=== PATIENT | female | born 1960 | race Caucasian/White ===

== ENCOUNTER 2018-04-18 08:31 | Day surgery (SDC) | payer BC ==
--- NOTE | 2018-04-15 21:11 | EKG ---
Test Date: 2018-04-15 Test Time: 15:14:14 Wire Drawing Setter: STEFANY MEASUREMENT RESULTS: Intervals: Rate: 67 WA: 140 QRSD: 84 QT: 430 QTc: 454 [place]: P: -3 WA: 140 QRS: 4 T: -28 INTERPRETIVE STATEMENTS: Normal sinus rhythm ST & T wave abnormality, consider anterior ischemia Abnormal ECG Compared to ECG 09/28/2015 11:34:06 Possible ischemia now present Sinus tachycardia no longer present ST (T wave) deviation still present Electronically Signed On 04-15-18 21:10:39 CDT by Simon Ho
[2018-04-18] MEDS ORDERED: Ringers Lactate 1,000 ML IV ONE ×2 (08:46→12:18)
[2018-04-18] MEDS ORDERED: METHYLPREDNISOLONE 125 MG INJ ONE (08:49)
[2018-04-18] MEDS: OXYMETAZOLINE HCL 0.05% 30ML NAS ONE ×5 (08:55→11:25)
[2018-04-18] MEDS ORDERED: NA CHLORIDE 0.9% 500 ML ONE (09:34)
[2018-04-18] MEDS ORDERED: OXYMETAZOLINE HCL 0.05% 30ML NAS ONE (09:34)
[2018-04-18] MEDS ORDERED: MIDAZOLAM HCL 2 MG/2 ML INJ ONE ×2 (09:35→09:50)
[2018-04-18] MEDS ORDERED: PROPOFOL 200 MG/20 ML VIAL IV ONE (09:49)
[2018-04-18] MEDS ORDERED: ROCURONIUM 50 MG/5 ML VIAL IV ONE ×3 (09:49→11:28)
[2018-04-18] MEDS ORDERED: FENTANYL CITR 250 MCG/5 ML ONE (09:50)
[2018-04-18] MEDS ORDERED: ONDANSETRON HCL 40 MG/20 ML VIAL ONE (09:53)
[2018-04-18] MEDS ORDERED: LIDOCAINE 1% MPF 2 ML AMPULE ONE (09:53)
[2018-04-18] MEDS ORDERED: GLYCOPYRROLATE 0.2 MG/ML SYR ONE ×2 (09:53→12:34)
[2018-04-18] MEDS ORDERED: NEOSTIGMINE 1 MG/ML -5 ML SYRINGE ONE ×2 (09:53→10:48)
[2018-04-18] MEDS: LIDOCAINE 1% W/EPI 1:100,000 MDV 50 ML VIAL ONE ×2 (10:00→10:31)
[2018-04-18] MEDS ORDERED: EPHEDRINE SULF 50 MG/10 ML SYR ONE (10:59)
[2018-04-18] MEDS ORDERED: NS 0.9% VIAL 20 ML ONE (12:23)
[2018-04-18] MEDS ORDERED: Phenylephrine HCl 10 MG/ML 1 ML VIAL ONE (12:23)
--- NOTE | 2018-04-18 12:36 | P.BOP ---
Preoperative diagnosis: nasal and presybeterian lesion; CRS Postoperative diagnosis: nasal BCC, presybeterian lesion, CRS Primary procedure: left ethmoidectomy Secondary procedure: nasal BCC exicsion and local tissue rearrangements/bilobed flap Other procedure(s): right sphenoid balloon sinuplasty, biopsy left temps Collections Assistant: NONE,NONE Estimated blood loss: 100ml Specimen: nasal, presybeterian, sinus Findings: nasal BCC with negative margins on frozen section Anesthesia: General Complications: None Implants: L xerogel Fluids & blood products: 1100 ml crystalloid Transferred to: Recovery Room Condition: Good
[2018-04-18] MEDS: MEPERIDINE HCL 50 MG/ML AMP ONE ×2 (13:05→13:10)
[2018-04-18] MEDS ORDERED: KETOROLAC 30 MG/ML INJ ONE (13:42)
[2018-04-18 14:13] VITALS: O2SAT 95
[2018-04-18] MEDS ORDERED: CODEINE 30MG/APAP 300MG TAB ONE (14:37)
[2018-04-18 15:29] VITALS: BP 119/67; TEMP 98.5
--- NOTE | 2018-04-22 17:45 | OP ---
Date of Procedure: 04/18/2018 Surgeon: Lauren Somers MD Preoperative Diagnosis: Nasal and temporal lesions and chronic rhinosinusitis. 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 Procedure: Nasal endoscopy with left ethmoidectomy, right sphenoid balloon sinuplasty, biopsy of the left temporal and excision of nasal basal cell carcinoma with local tissue rearrangements via bilobe d flap. Indication For Procedure: Ms. Sethi was referred to the ENT Clinic for chronic sinusitis and has underlying autoimmune disease including lupus resulting in a septal perforation. She was noted on p ost treatment scan to have mild persistent ethmoid disease with partial opacification of the right sp henoid sinus and due to need for long-term immunosuppression due to her lupus, it was felt these woul d contribute over time to relapses, recurrences and potential interruption of her lupus therapy. The risks, benefits, and alternatives were discussed with the patient, who agreed to proceed. During th e patient's evaluation, she was noted to have a concerning and suspicious lesion of the right nasal a la, but no prior biopsy had been performed. The patient was also concerned about a lesion of the lef t temporal, which clinically appeared benign but was reported by the patient to be increasing over ti me and she desired biopsy to ensure no concerning lesions. Description Of Procedure: The patient was brought to the operating room. She was placed under gener al anesthesia via oral endotracheal tube. The patient's face was prepped and draped in standard [facility] ion for skin excisions. The nasal lesion was approximately 6 mm in diameter and its appearance was s uspicious for basal cell carcinoma. The area was injected with local anesthetic and a circular incis ion around the margin around the lesion with a 2 to 3 mm margin was designed. A scalpel was used to incise through the skin and subcutaneous tissues. A suture was placed at the superior most aspect ma rking 12 o'clock and the specimen was elevated sharply from the underlying tissues. The specimen was sent to Pathology for frozen section analysis. While awaiting these results, the left temporal lesi on was addressed. The area around the lesion was injected with local anesthetic. The lesion was not ulcerated and was firm, but not hard and there was no crusting. Therefore, the lesion was removed b y excision with a fusiform design. The specimen was not oriented and the defect was closed in a laye red fashion using 4-0 Vicryl and 5-0 gut sutures. Direct pressure was applied along with electrocaut jeison to aid in hemostasis. The area around the nose was then redressed and initial plans for reconstr uction of the defect were undertaken. The surrounding tissues were carefully undermined. The defect was approximately 1 cm in diameter and tentative plan for bilobed flap were made. Once the patholog y results returned confirming a basal cell carcinoma with negative margins. The flap was cut, rotate d into place and secured using Vicryl sutures. The skin was then closed in the running fashion using gut sutures. These portions of the procedure were concluded and attention was turned to the patient 's nasal cavity and paranasal sinuses. The head of bed was turned 90 degrees. The patient's preoper ative CT was loaded into the [employer] system. The navigation headpiece was secured to the patient's forehead and registration was performed in accordance with supervisor network control operators's instructions. The accuracy of the registration was confirmed by celep-ub-nwcye matching including the tip of the nose, base of the columella, glabella and the bilateral medial lateral canthus. I and registration accuracy was fe lt to be very good. The nasal hairs were trimmed and the nose was packed with Afrin-soaked pledgets. After time for effect, these were removed and a 0-degree endoscope was used to perform a nasal endo scopy. There was a large pre-existing septal perforation consistent with preoperative CT and physica l exam. The edges of the perforation were friable, but there was no obvious mass. No significant cr usting and no severe single source of bleeding. The 0-degree endoscope was used with the navigation suction to navigate into the middle meatus. The left uncinate process was removed using backbiter an d 90-degree Blakesley revealing the ethmoid bulla. Ethmoid partitions were carefully dissected and r emoved using combination of curette, Blakesley and microdebrider. The nasal mucosa was very friable and bled easily. Afrin-soaked pledgets were applied intermittently to aid in control of bleeding. T he suction navigation was used to confirm. Dissection through the basal lamella into the posterior e thmoid cells were there was persistent opacification on her preoperative CT scan. In addition, cells within the frontal recess were carefully dissected to confirm removal of the opacified and irritated area noted on her preoperative CT scan. After adequate dissection in the left ethmoid cavity was pa cked with Afrin-soaked pledgets and attention was turned to the right side and initial preoperative p nhung for right ethmoidectomy was reconsidered, given the degree of oozing and bleeding and a very mild findings on the right side. Decision was made to proceed with balloon sinuplasty and irrigation of the right sphenoid sinus. The entellus balloon device was prepared in accordance with supervisor network control operators's instructions and was used under endoscopic guidance and advanced into the sphenoid os. The balloon was dilated. Then deflated and retracted. The right sphenoid was then forcefully irrigated with sev eral 20 mL aliquots of sterile saline. The nasal cavity was thoroughly suctioned. The area of the s phenoid ethmoid recess was examined and there was no significant bleeding. Attention was then return ed to the left ethmoid cavity. All packing was removed and the ethmoid cavity was repacked with a Ze ro gel dissolvable sinus dressing. The packing was soaked thoroughly with sterile saline. The nasop harynx was thoroughly suctioned and the patient was returned to care of anesthesia for awakening, ext ubation in the operating room, which proceeded without difficulty. Complications: None. Bisposition: The patient will follow up with Dr. Somers in approximately 10 days for initial postsu rgical debridement and removal of sutures as needed. ZAYRA/TANIA Voice ID: [id number] Report ID: [id number]
== END 2018-04-18 15:05 | disposition home or self-care (01) ==
LOC: OR 08:31
PROVIDERS: ATTEND Otolaryngology
PROC: 8E09XBZ Computer Assisted Procedure of Head and Neck Region (ICD-10-PCS; 2018-04-18)
PROC: 0HB1XZZ Excision of Face Skin, External Approach (ICD-10-PCS; 2018-04-18)
PROC: 0HB1XZZ Excision of Face Skin, External Approach (ICD-10-PCS; 2018-04-18)
PROC: 09TV8ZZ Resection of Left Ethmoid Sinus, Via Natural or Artificial Opening Endoscopic (ICD-10-PCS; principal; 2018-04-18 10:15)
PROC: 09QW8ZZ Repair Right Sphenoid Sinus, Via Natural or Artificial Opening Endoscopic (ICD-10-PCS; 2018-04-18 10:15)
DX: C44.311 Basal cell carcinoma of skin of nose (principal); D23.39 Other benign neoplasm of skin of other parts of face; J32.9 Chronic sinusitis, unspecified; J37.0 Chronic laryngitis; J34.89 Other specified disorders of nose and nasal sinuses; K21.9 Gastro-esophageal reflux disease without esophagitis; I10 Essential (primary) hypertension; E03.9 Hypothyroidism, unspecified; M06.9 Rheumatoid arthritis, unspecified; M32.9 Systemic lupus erythematosus, unspecified; F32.9 Major depressive disorder, single episode, unspecified; Z98.84 Bariatric surgery status
CPT/HCPCS: 88304; 88305; 88311; 88331; 88332; 93005; J2001; J2175; J2250; J2370; J2405; J2710; J2930

== ENCOUNTER 2019-03-06 16:20 | Emergency (ER) | payer BC ==
--- NOTE | 2019-03-06 17:19 | RAD REPORT ---
EXAM DESCRIPTION: CT - Head C Spine Cap Wo Con - 03/06/2019 5:00 pm CLINICAL HISTORY: Fall, head, neck, chest and abdomen pain COMPARISON: CT chest September 2018, contrast CT abdomen study September 2015. TECHNIQUE: Axial [address] head images were obtained. Axial [address] cervical spine images were obtain ed with sagittal and coronal reconstruction images reviewed. Axial 5 mm images of the chest, abdomen and pelvis were obtained. All CT scans are performed using dose optimization technique as appropriate and may include automated exposure control or mA/KV adjustment according to patient size. FINDINGS: No intracranial hemorrhage, mass or edema. No midline shift or abnormal fluid collection. Mastoid air cells and paranasal sinuses are clear. No skull fracture. No globe or orbital content ab normality. Arterial calcifications are present. There is a questionable nasal bone fracture. Facial b ones are only partially imaged. Correlation is needed with any evidence for significant facial trauma . Minimal atrophy and chronic ischemic changes appear to be present. Cervical bodies are normal in height and alignment. No fracture or acute bone finding.No disk space n arrowing.No prevertebral soft tissue thickening or paraspinal mass.Central canal detail is inherently limited on CT imaging. CT chest shows no pneumothorax, pulmonary contusion or pleural fluid collection. Punctate granuloma s een in the left midlung field. Coronary artery calcifications are present. No mediastinal hematoma an d the aorta and pulmonary arteries are unremarkable. No chest will mass or abnormal axillary finding. No displaced rib fracture or other significant bony finding. No acute traumatic injury seen to the abdomen or pelvis. The liver shows several large areas of geogr aphic decreased attenuation. No evidence for capsular disruption, fluid or stranding adjacent to the liver. Spleen is unremarkable. No pancreatic abnormality. Cholecystectomy clips are present. No bilia ry tree dilatation. Kidneys and adrenal glands show no suspicious findings for noncontrast imaging. No bowel injury or si gnificant finding. No free air, free fluid or abnormal stranding. No hernia, mass or bulky lymphadeno dar. No urinary bladder abnormality. Uterus is absent. Ovaries are absent or atrophic. No significant bony finding. IMPRESSION: No hemorrhage, edema or acute intracranial finding. No CT head abnormality to explain as ymmetric pupils. No significant CT cervical spine finding. No significant CT Chest finding. No acute CT abdomen or pelvis finding. Patient shows large geographic areas diminished attenuation in the liver not fully assessed on a noncontrast study. These were probably present on the September CT s tudy which was also inadequate for full liver assessment. Patient has a history of fatty infiltration and the current presentation is most likely areas of resi dual fatty infiltration. Malignancy or other aggressive liver process is felt to be unlikely. Follow-up outpatient MR imaging would be most sensitive for further evaluation of the liver parenchym a. Contrast-enhanced CT abdomen using precontrast, contrast enhanced and delayed imaging would be an alternative if the patient is unable to undergo MR imaging.
--- NOTE | 2019-03-06 17:23 | ER ---
Nurse's Notes [facility] Name: Tania Sethi Age: 58 yrs Sex: Female : 1960 Arrival Date: 03/06/2019 Time: 16:23 Bed 5 Private MD: Edy Garcia V Diagnosis: Fall on same level from slipping, tripping and stumbling;Superficial injury of head Presentation: 03/06 16:30 Presenting complaint: Sent from [facility] for uneven pupils. Pt reports fall on wet hb concrete 2 days ago, hit head, negative LOC. Pt c/o right ankle pain and headache. Denies N/V/dizziness. Transition of care: patient was not received from another setting of care. Onset of symptoms was March 04, 2019. Risk Assessment: Do you want to hurt yourself or someone else? Patient reports no desire to harm self or others. Care prior to arrival: None. 16:30 Method Of Arrival: Ambulatory hb 16:30 Acuity: [place] 3 hb Historical: - Allergies: 16:34 Sulfa (Sulfonamide Antibiotics); hb 16:34 Glipizide; hb - PSHx: 16:34 Gastric Bypass; Hysterectomy; Hernia repair; hb - Immunization history:: Adult Immunizations up to date. - Social history:: Smoking status: Patient/guardian denies using tobacco. - Ebola Screening: : No symptoms or risks identified at this time. Vital Signs: 16:29 BP 137 / 95; Pulse 80; Resp 16; Temp 97.9; Pulse Ox 96% ; Weight 80.74 kg; Height 5 ft. hb 3 in. (160.02 cm); Pain 10/10; 16:29 Body Mass Index 31.53 (80.74 kg, 160.02 cm) hb Emmy Coma Score: 16:43 Eye Response: spontaneous(4). Verbal Response: oriented(5). Motor Response: obeys kb commands(6). Total: 15. ED Course: 16:23 Patient arrived in ED. mr 16:23 Edy Garcia MD is Private Physician. mr 16:33 Triage completed. hb 16:34 [facility]C [facility] kb 16:34 Jeremias Reveles MD is Attending Physician. kb 16:34 Arm band placed on right wrist. hb 16:35 Jonatan Wilson, RN is Primary Nurse. tr5 17:01 CT Traumagram (Head C Spine CAP wo con) In Process Unspecified. EDMS Administered Medications: No medications were administered Outcome: 17:22 Discharge ordered by . kb 18:13 Patient left the ED. iw Signatures: Dispatcher [employer] EDMS Lucy Gonzalez, CORPORATE COUNSELOR-C CORPORATE COUNSELOR-Ckb Aysha John Radha Nicolas RN RN Jennifer Spangler RN RN Jonatan Wilson, ALBARO RN tr5 Corrections: (The following items were deleted from the chart) 16:34 16:29 BP 137 / 95; Pulse 80bpm; Resp 16bpm; Pulse Ox 96%; Temp 97.9F; 80.74 kg; Height hb 5 ft. 2 in.; BMI: 32.5; Pain 8/10; hb
--- NOTE | 2019-03-06 17:23 | EDPHYS ---
Physician Documentation [facility] Name: Tania Sethi Age: 58 yrs Sex: Female : 1960 Arrival Date: 03/06/2019 Time: 16:23 Bed 5 Private MD: Edy Garcia V ED Physician Jeremias Reveles HPI: 03/06 16:45 This 58 yrs old Female presents to ER via Ambulatory with complaints of kb Headache, Ankle Swelling. 16:48 Details of fall: The patient fell from a height, truck. Onset: The symptoms/episode kb began/occurred 2 day(s) ago. Associated injuries: The patient sustained injury to the head, pain, injury to the abdomen, tenderness, pain, right hand, left hand and left elbow, painful injury, anterior aspect of right ankle, painful injury, swelling. Severity of symptoms: At their worst the symptoms were moderate, in the emergency department the symptoms are unchanged. The patient has not experienced similar symptoms in the past. The patient has been recently seen at an urgent care, for similar complaints, and was sent to the [facility] Emergency Department for further evaluation. Pt reports she fell out of a truck when trying to step out of it in the rain 2 days ago. sTates she just now got time to go to . Was diagnosed with an ankle fracture there and was splinted, but they sent her here because her pupils weren't equal. Pt report headache and soreness to torso.. Historical: - Allergies: 16:34 Sulfa (Sulfonamide Antibiotics); hb 16:34 Glipizide; hb - PSHx: 16:34 Gastric Bypass; Hysterectomy; Hernia repair; hb - Immunization history:: Adult Immunizations up to date. - Social history:: Smoking status: Patient/guardian denies using tobacco. - Ebola Screening: : No symptoms or risks identified at this time. ROS: 16:43 Constitutional: Negative for fever, chills, and weight loss, ENT: Negative for injury, kb pain, and discharge, Neck: Negative for injury, pain, and swelling, Cardiovascular: Negative for chest pain, palpitations, and edema, Respiratory: Negative for shortness of breath, cough, wheezing, and pleuritic chest pain, Back: Negative for injury and pain, : Negative for injury, bleeding, discharge, and swelling, Skin: Negative for injury, rash, and discoloration. 16:43 Eyes: Positive for uneven pupils. 16:43 Abdomen/GI: Positive for abdominal pain, Negative for nausea, vomiting, and diarrhea, constipation, abdominal cramps, abdominal distension. 16:53 MS/extremity: Positive for pain, of the anterior aspect of right ankle and left hand kb and right hand and left elbow. Exam: 16:44 Constitutional: This is a well developed, well nourished patient who is awake, alert, kb and in no acute distress. Head/Face: Normocephalic, atraumatic. ENT: Nares patent. No nasal discharge, no septal abnormalities noted. Tympanic membranes are normal and external auditory canals are clear. Oropharynx with no redness, swelling, or masses, exudates, or evidence of obstruction, uvula midline. Mucous membranes moist. Neck: Trachea midline, no thyromegaly or masses palpated, and no cervical lymphadenopathy. Supple, full range of motion without nuchal rigidity, or vertebral point tenderness. No Meningismus. Chest/axilla: Normal chest wall appearance and motion. Nontender with no deformity. No lesions are appreciated. Cardiovascular: Regular rate and rhythm with a normal S1 and S2. No gallops, murmurs, or rubs. Normal PMI, no JVD. No pulse deficits. Respiratory: Lungs have equal breath sounds bilaterally, clear to auscultation and percussion. No rales, rhonchi or wheezes noted. No increased work of breathing, no retractions or nasal flaring. Back: No spinal tenderness. No costovertebral tenderness. Full range of motion. Skin: Warm, dry with normal turgor. Normal color with no rashes, no lesions, and no evidence of cellulitis. MS/ Extremity: Pulses equal, no cyanosis. Neurovascular intact. Full, normal range of motion. short leg splint in place to right leg Neuro: Awake and alert, GCS 15, oriented to person, place, time, and situation. Cranial nerves II-XII grossly intact. Motor strength 5/5 in all extremities. Sensory grossly intact. Cerebellar exam normal. Normal gait. 16:44 Eyes: Pupils: right pupil is approximately 3 mm(s), left pupil is approximately 2 mm(s), round, reactive to light. 16:44 Abdomen/GI: Inspection: abdomen appears normal, Bowel sounds: normal, in all quadrants, Palpation: soft, in all quadrants, moderate abdominal tenderness, in all quadrants. Vital Signs: 16:29 BP 137 / 95; Pulse 80; Resp 16; Temp 97.9; Pulse Ox 96% ; Weight 80.74 kg; Height 5 ft. hb 3 in. (160.02 cm); Pain 10/10; 16:29 Body Mass Index 31.53 (80.74 kg, 160.02 cm) hb Emmy Coma Score: 16:43 Eye Response: spontaneous(4). Verbal Response: oriented(5). Motor Response: obeys kb commands(6). Total: 15. MDM: 16:34 Patient medically screened. kb 16:43 Data reviewed: vital signs, nurses notes. Data interpreted: Pulse oximetry: on room air kb is 96 %. Interpretation: normal. 17:21 Counseling: I had a detailed discussion with the patient and/or guardian regarding: the kb historical points, exam findings, and any diagnostic results supporting the discharge/admit diagnosis, radiology results, the need for outpatient follow up, a family practitioner, to return to the emergency department if symptoms worsen or persist or if there are any questions or concerns that arise at home. 03/06 16:43 Order name: CT Traumagram (Head C Spine CAP wo con); Complete Time: 17:21 kb Administered Medications: No medications were administered Disposition: 03/06/19 17:22 Discharged to Home. Impression: Fall on same level from slipping, tripping and stumbling, Superficial injury of head. - Condition is Stable. - Discharge Instructions: Head Injury, Adult, [id number]. - Prescriptions for Tramadol 50 mg Oral Tablet - take 1 tablet by ORAL route every 8 hours as needed; 12 tablet. - Medication Reconciliation Form, Thank You Letter, Antibiotic Education, Prescription Opioid Use form. - Follow up: Private Physician; When: 2 - 3 days; Reason: Recheck today's complaints, Continuance of care, Re-evaluation by your physician. Follow up: Emergency Department; When: As needed; Reason: Worsening of condition. Addendum: 03/11/2019 16:39 Co-signature as Attending Physician, Jeremias Reveles MD I agree with the assessment and c medina plan of care. Signatures: Dispatcher [employer] Lucy Munroe, PRODUCT MARKETING ANALYST-C PRODUCT MARKETING ANALYST-Ckb Jeremias Reveles MD MD cha Williams, Irene, RN RN iw Jennifer Spangler RN RN Corrections: (The following items were deleted from the chart) 03/06 16:53 16:36 Head Brain Wo Cont+CT.RAD.BRZ ordered. [facility] 16:54 16:43 Constitutional: Negative for fever, chills, and weight loss, ENT: Negative for kb injury, pain, and discharge, Neck: Negative for injury, pain, and swelling, Cardiovascular: Negative for chest pain, palpitations, and edema, Respiratory: Negative for shortness of breath, cough, wheezing, and pleuritic chest pain, Back: Negative for injury and pain, : Negative for injury, bleeding, discharge, and swelling, MS/Extremity: Negative for injury and deformity, Skin: Negative for injury, rash, and discoloration, kb 16:54 16:44 Constitutional: This is a well developed, well nourished patient who is awake, kb alert, and in no acute distress. Head/Face: Normocephalic, atraumatic. ENT: Nares patent. No nasal discharge, no septal abnormalities noted. Tympanic membranes are normal and external auditory canals are clear. Oropharynx with no redness, swelling, or masses, exudates, or evidence of obstruction, uvula midline. Mucous membranes moist. Neck: Trachea midline, no thyromegaly or masses palpated, and no cervical lymphadenopathy. Supple, full range of motion without nuchal rigidity, or vertebral point tenderness. No Meningismus. Chest/axilla: Normal chest wall appearance and motion. Nontender with no deformity. No lesions are appreciated. Cardiovascular: Regular rate and rhythm with a normal S1 and S2. No gallops, murmurs, or rubs. Normal PMI, no JVD. No pulse deficits. Respiratory: Lungs have equal breath sounds bilaterally, clear to auscultation and percussion. No rales, rhonchi or wheezes noted. No increased work of breathing, no retractions or nasal flaring. Back: No spinal tenderness. No costovertebral tenderness. Full range of motion. Skin: Warm, dry with normal turgor. Normal color with no rashes, no lesions, and no evidence of cellulitis. MS/ Extremity: Pulses equal, no cyanosis. Neurovascular intact. Full, normal range of motion. Neuro: Awake and alert, GCS 15, oriented to person, place, time, and situation. Cranial nerves II-XII grossly intact. Motor strength 5/5 in all extremities. Sensory grossly intact. Cerebellar exam normal. Normal gait. kb 18:13 17:22 03/06/2019 17:22 Discharged to Home. Impression: Fall on same level from iw slipping, tripping and stumbling; Superficial injury of head. Condition is Stable. Forms are Medication Reconciliation Form, Thank You Letter, Antibiotic Education, Prescription Opioid Use. Follow up: Private Physician; When: 2 - 3 days; Reason: Recheck today's complaints, Continuance of care, Re-evaluation by your physician. Follow up: Emergency Department; When: As needed; Reason: Worsening of condition. kb
[2019-03-06 18:17] VITALS: BP 137/95; TEMP 97.9; O2SAT 96
== END 2019-03-06 18:13 | disposition home or self-care (01) ==
LOC: ER 16:20
DX: S00.90XA Unspecified superficial injury of unspecified part of head, initial encounter (principal); V89.9XXA Person injured in unspecified vehicle accident, initial encounter; Y93.89 Activity, other specified; Y92.9 Unspecified place or not applicable; Z88.2 Allergy status to sulfonamides; Z88.8 Allergy status to other drugs, medicaments and biological substances
CPT/HCPCS: 70450; 71250; 72125; 99282

== ENCOUNTER 2019-06-05 13:33 | Observation (INO) | payer BC ==
--- NOTE | 2019-06-05 15:21 | ER ---
[facility] Name: Tania Sethi Age: 59 yrs Sex: Female : 1960 Arrival Date: 06/05/2019 Time: 13:35 Bed External Waiting Private MD: Edy Garcia V Diagnosis: Abdominal pain and elevated liver enzymes. Presentation: 06/05 13:41 Presenting complaint: Direct admit by Dr. Garcia for abdominal pain, elevated liver hb enzymes, and headache x 1 week. Transition of care: patient was not received from another setting of care. Onset of symptoms was May 29, 2019. Risk Assessment: Do you want to hurt yourself or someone else? Patient reports no desire to harm self or others. Initial Sepsis Screen: Does the patient meet any 2 criteria? No. Patient's initial sepsis screen is negative. Does the patient have a suspected source of infection? No. Patient's initial sepsis screen is negative. Care prior to arrival: None. 13:41 Method Of Arrival: Ambulatory hb 13:41 Acuity: [place] 3 hb Historical: - Allergies: 13:43 Glipizide; hb 13:43 Sulfa (Sulfonamide Antibiotics); hb - PSHx: 13:43 Gastric Bypass; Hysterectomy; Hernia repair; hb - Immunization history:: Adult Immunizations. - Social history:: Smoking status: Patient/guardian denies using tobacco. - Ebola Screening: : No symptoms or risks identified at this time. Vital Signs: 13:42 BP 118 / 83; Pulse 74; Resp 16; Temp 97.8; Pulse Ox 98% on R/A; Weight 80.74 kg; Height hb 5 ft. 4 in. (162.56 cm); Pain 10/10; 13:42 Body Mass Index 30.55 (80.74 kg, 162.56 cm) hb ED Course: 13:35 Patient arrived in ED. as 13:38 Edy Garcia MD is Private Physician. as 13:42 Triage completed. hb 13:42 Arm band placed on. hb 15:16 Lisa Orozco, ALBARO is Primary Nurse. ph 15:19 Edy Garcia MD is Hospitalizing Provider. aa5 Administered Medications: No medications were administered Outcome: 15:00 Decision to Hospitalize by Provider. aa5 15:00 Patient left the ED. 15:00 Condition: Pt taken to assigned room by David Kwok RN ([place]) via aa5 wheelchair. Signatures: Lauren Chow Audri RN RN aa5 Lisa Orozco, RN RN Jennifer Spangler RN RN Corrections: (The following items were deleted from the chart) 15:22 15:20 Decision to Hospitalize by Provider. aa5 aa5 15:22 15:20 Patient left the ED. aa5 aa5
[2019-06-05] MEDS ORDERED: ALBUTEROL 2.5 MG/3 ML NEB SOL IH PRN (15:49)
[2019-06-05] MEDS ORDERED: ONDANSETRON 4 MG/2 ML VIAL IV PRN (16:00)
[2019-06-05] MEDS ORDERED: PNEUMOCOCCAL VACCINE 0.5 ML IMVAC ONE (16:00)
[2019-06-05] MEDS ORDERED: LOPERAMIDE HCL 2 MG CAPSULE PO PRN (16:00)
[2019-06-05] MEDS ORDERED: INFLUENZA VACCINE (for 3y+) 0.5 ML DOSE IMVAC ONE (16:00)
[2019-06-05] MEDS ORDERED: ACETAMINOPHEN 325 MG TABLET PO PRN (16:00)
[2019-06-05] MEDS ORDERED: POLYETHYL GLY 3350 17 GM/DOSE PO PRN (16:00)
[2019-06-05] MEDS ORDERED: DIPHENHYDRAMINE 25 MG TAB/CAP PO PRN (16:00)
[2019-06-05] MEDS: NACHLORIDE 0.45% 1,000 ML IV SCH ×2 (16:00→18:31)
[2019-06-05] MEDS ORDERED: ONDANSETRON 4 MG (ODT) TAB PO PRN (16:00)
[2019-06-05 17:18] LABS: Absolute Lymphocytes (CBC) 1.9 K/uL (0.7-4.9); Basophils % 0.6 % (0-1.3); Hematocrit 36.8 % (36.0-45.0); Lymphocytes % 25.5 % (15.3-44.8); MPV 8.2 fL (7.6-11.3); RBC Red Blood Cell Count 4.01 M/uL (3.86-4.86)
[2019-06-05 17:20] LABS: Protime INR 1.18
[2019-06-05 17:47] LABS: ALT/SGPT 68 U/L (12-78); AST/SGOT 17 U/L (15-37); Albumin 3.7 g/dL (3.4-5.0); Alkaline Phosphatase 205 U/L (45-117); BUN Blood Urea Nitrogen 7 mg/dL (7-18); Bicarbonate 31 mmol/L (21-32); Bilirubin Direct 0.2 mg/dL (0-0.2); Bilirubin Total 0.6 mg/dL (0.2-1.0); Glucose Level 178 mg/dL (74-106); Magnesium 1.9 mg/dL (1.8-2.4); Phosphorus 3.4 mg/dL (2.5-4.9); Potassium 3.8 mmol/L (3.5-5.1); Protein, Total 7.1 g/dL (6.4-8.2); Sodium Level 137 mmol/L (136-145)
[2019-06-05] MEDS: ENOXAPARIN 40 MG/0.4 ML SQ SCH (18:30)
[2019-06-05] MEDS ORDERED: KCL 20 MEQ/100 mL IVPB 20 MEQ/100 ML BAG IV SCH (18:30)
[2019-06-05] MEDS: METRONIDAZOLE 500mg IVPB 500 MG/100 ML BAG IV SCH (18:31)
[2019-06-05] MEDS: HYDROMORPHONE HCL 1 MG/ML INJ IV PRN ×2 (18:32→22:30)
[2019-06-05 18:55] VITALS: BMI 30.5
[2019-06-05] MEDS ORDERED: POTASSIUM CL SA 10 MEQ TAB PO ONE (19:03)
[2019-06-05] MEDS: LEVALBUTEROL 1.25 MG/3 ML NEB IH SCH (20:00)
[2019-06-05] MEDS: IPRATROPIUM BROM 0.5MG/2.5ML IH SCH (20:00)
[2019-06-05] MEDS ORDERED: SUMATRIPTAN SUCCI 50 MG TAB PO PRN (20:07)
[2019-06-05] MEDS ORDERED: ORPHENADRINE CITRATE 100 MG PO PRN (20:28)
[2019-06-05] MEDS: CEFTRIAXONE/SWI 1gm 1 GM/10 ML SYR IVP SCH (20:28)
[2019-06-05] MEDS ORDERED: ALPRAZOLAM 0.5 MG TABLET PO SCH (21:00)
[2019-06-05] MEDS ORDERED: DOXEPIN HCL 25 MG CAP PO SCH ×2 (21:00→22:00)
[2019-06-05] MEDS ORDERED: DOCUSATE NA 100 MG CAP PO SCH (21:00)
--- NOTE | 2019-06-05 21:39 | RAD REPORT ---
EXAM DESCRIPTION: CT - Abdomen Pelvis W Contrast - 06/05/2019 7:20 pm CLINICAL HISTORY: Abdominal pain COMPARISON: 2015 TECHNIQUE: Computed axial tomography of the abdomen pelvis was obtained. 100 cc Isovue-300 was admin istered intravenously. Oral contrast was given All CT scans are performed using dose optimization technique as appropriate and may include automated exposure control or mA/KV adjustment according to patient size. FINDINGS: Liver contains several areas markedly diminished attenuation consistent with severe fatty infiltration. Remainder of the liver demonstrates marked fatty infiltration. Spleen, pancreas, adrenals and kidneys appear unremarkable. There is no evidence of diverticulitis. A moderate amount of stool is present throughout the colon. The gallbladder has been removed. Postsurgical changes involve stomach IMPRESSION: Marked fatty infiltration liver
[2019-06-05] MEDS ORDERED: THYROID 30 MG TAB PO SCH (22:00)
[2019-06-05] MEDS: BUSPIRONE HCL 5 MG TABLET PO SCH (22:23)
[2019-06-05] MEDS: DOCUSATE NA 100 MG CAP PO SCH (22:23)
[2019-06-05] MEDS: ALPRAZOLAM 0.5 MG TABLET PO SCH (22:23)
[2019-06-05] MEDS: PANTOPRAZOLE 40MG TABLET PO SCH (22:23)
--- NOTE | 2019-06-05 22:27 | RAD REPORT ---
EXAM DESCRIPTION: MRI - Brain W/Wo Cont - 06/05/2019 7:20 pm CLINICAL HISTORY: Headache COMPARISON: March [address] TECHNIQUE: Axial, sagittal, and coronal magnetic images of the brain were obtained. 20 cc MultiHance administered intravenously FINDINGS: Mild to moderate signal within periventricular, deep and subcortical white matter probably ischemic changes secondary to small vessel disease The ventricles are normal in caliber. Diffusion-weighted/ ADC mapping sequences do not demonstrate evidence of an acute infarction. No abnormal enhancement within the brain is seen. An extra-axial fluid collection is not noted. Increased signal throughout the sphenoid sinus has developed IMPRESSION: No acute intracranial abnormality displayed Increased signal throughout the sphenoid sinus probably representing acute sinusitis. Followup CT rec ommended after treatment
[2019-06-05] MEDS: METHYLPREDNISOLONE 40 MG INJ IV SCH (23:05)
[2019-06-06] MEDS: METRONIDAZOLE 500mg IVPB 500 MG/100 ML BAG IV SCH ×2 (00:01→09:30)
[2019-06-06] MEDS: LEVALBUTEROL 1.25 MG/3 ML NEB IH SCH ×3 (02:00→13:25)
[2019-06-06] MEDS: IPRATROPIUM BROM 0.5MG/2.5ML IH SCH ×3 (02:00→13:25)
[2019-06-06] MEDS: HYDROMORPHONE HCL 1 MG/ML INJ IV PRN ×2 (04:33→09:32)
[2019-06-06] MEDS: METHYLPREDNISOLONE 40 MG INJ IV SCH ×2 (05:00→12:00)
[2019-06-06 06:09] LABS: Absolute Lymphocytes (CBC) 0.9 K/uL (0.7-4.9); Basophils % 0.4 % (0-1.3); Hematocrit 39.5 % (36.0-45.0); Lymphocytes % 8.7 % (15.3-44.8); MPV 8.5 fL (7.6-11.3); RBC Red Blood Cell Count 4.26 M/uL (3.86-4.86)
[2019-06-06 06:13] LABS: Magnesium 2.1 mg/dL (1.8-2.4); Potassium 4.8 mmol/L (3.5-5.1)
[2019-06-06] MEDS ORDERED: FOLIC ACID 1 MG TABLET PO SCH (09:00)
[2019-06-06] MEDS ORDERED: SERTRALINE HCL 100 MG TAB PO SCH (09:00)
[2019-06-06] MEDS ORDERED: predniSONE 5 MG TAB PO SCH (09:00)
[2019-06-06] MEDS ORDERED: METFORMIN ER 500 MG TAB PO SCH (09:00)
[2019-06-06] MEDS ORDERED: GABAPENTIN 300 MG CAP PO SCH (09:00)
[2019-06-06] MEDS ORDERED: DULOXETINE 30 MG CAP PO SCH (09:00)
[2019-06-06] MEDS ORDERED: PROPRANOLOL HCL 60 MG SA CAP PO SCH (09:00)
[2019-06-06] MEDS: BUSPIRONE HCL 5 MG TABLET PO SCH (09:26)
[2019-06-06] MEDS: ALPRAZOLAM 0.5 MG TABLET PO SCH ×2 (09:26→14:00)
[2019-06-06] MEDS: DOCUSATE NA 100 MG CAP PO SCH (09:27)
[2019-06-06] MEDS: PANTOPRAZOLE 40MG TABLET PO SCH (09:27)
[2019-06-06] MEDS: CEFTRIAXONE/SWI 1gm 1 GM/10 ML SYR IVP SCH (09:29)
[2019-06-06] MEDS: ENOXAPARIN 40 MG/0.4 ML SQ SCH (09:29)
[2019-06-06 10:39] VITALS: O2SAT 97
[2019-06-06 10:40] LABS: Blood Morphology Comment NOT SEEN (NOT SEEN); Platelet Estimate ADEQ; Urine White Blood Cell Casts OK
--- NOTE | 2019-06-06 11:54 | RAD REPORT ---
EXAM DESCRIPTION: Jason Bates (2 Views)06/06/2019 8:30 am CLINICAL HISTORY: Abdominal pain COMPARISON: 2016 FINDINGS: The lungs appear clear of acute infiltrate. The heart is normal size IMPRESSION: No acute abnormalities displayed
--- NOTE | 2019-06-06 13:03 | P.DS ---
Admission Date: 06/05/19 Discharge Date: 06/06/19 Disposition: ROUTINE DISCHARGE Discharge Condition: FAIR Hospital Course: MS. LEWIS IS DOING A LOT BETTER. WITH ONE DOSE OF STEROIDS HER HEADACHE HAS IMPROVED. SHE HAS SINUSITIS ON MRI. I GAVE HER CEFTIN TO GO HOME. HER LIVER ENZYMES THAT WERE ELEVATED SHOWING CHOLESTATIC PICTURE NORMALIZED IN TWO DAYS. THIS SOUNDS LIKE SHE MAY HAVE PASSED GRAVEL FROM BILE DUCT AND HAD PAIN AT THE SAME TIME, NOW THAT IS GONE. Vital Signs/Physical Exam: Temp Pulse Resp BP Pulse Ox 97.2 F 79 18 150/84 H 97 06/06/19 08:00 06/06/19 08:00 06/06/19 09:32 06/06/19 08:00 06/06/19 09:32 General: Alert, In no apparent distress HEENT: Atraumatic, PERRLA, EOMI Neck: Supple, JVD not distended Respiratory: Clear to auscultation bilaterally, Normal air movement Cardiovascular: Regular rate/rhythm, Normal S1 S2 Gastrointestinal: Normal bowel sounds, No tenderness Musculoskeletal: No tenderness Integumentary: No rashes Neurological: Normal speech, Normal tone, Normal affect Lymphatics: No axilla or inguinal lymphadenopathy Laboratory Data at Discharge: WBC 10.9 K/uL (4.3-10.9) D 06/06/19 05:24 Hgb 13.7 g/dL (12.0-15.0) 06/06/19 05:24 Hct 39.5 % (36.0-45.0) 06/06/19 05:24 Plt Count 285 K/uL (152-406) 06/06/19 05:24 PT 13.8 SECONDS (9.5-12.5) H 06/05/19 16:53 INR 1.18 06/05/19 16:53 APTT 40.8 SECONDS (24.3-36.9) H 06/05/19 16:53 Sodium 138 mmol/L (136-145) 06/06/19 05:24 Potassium 4.8 mmol/L (3.5-5.1) 06/06/19 05:24 BUN 9 mg/dL (7-18) 06/06/19 05:24 Creatinine 0.75 mg/dL (0.55-1.3) 06/06/19 05:24 Glucose 288 mg/dL (74-106) H 06/06/19 05:24 Phosphorus 3.4 mg/dL (2.5-4.9) 06/05/19 16:53 Magnesium 2.1 mg/dL (1.8-2.4) 06/06/19 05:24 Total Bilirubin 0.6 mg/dL (0.2-1.0) 06/05/19 16:53 AST 17 U/L (15-37) 06/05/19 16:53 ALT 68 U/L (12-78) 06/05/19 16:53 Alkaline Phosphatase 205 U/L (45-117) H 06/05/19 16:53 Home Medications: Duloxetine HCl 60 mg PO DAILY 04/15/18 Omeprazole 20 mg PO BID 04/15/18 Propranolol [Inderal LA*] 60 mg PO DAILY 04/15/18 Sertraline [Zoloft*] 2 tab PO DAILY 04/15/18 predniSONE [Prednisone*] 5 mg PO DAILY 04/15/18 Alprazolam [Xanax] 0.5 mg PO TID 04/18/18 Buspirone HCl [Buspar] 10 mg PO BID 04/18/18 Doxepin HCl 25 mg PO BEDTIME 04/18/18 Folic Acid 2 tab PO DAILY 04/18/18 Thyroid Tab [[place] Thyroid*] 30 mg PO BEDTIME 04/18/18 Cholecalciferol (Vitamin D3) [Vitamin D3] 5,000 unit PO DAILY 06/05/19 Cyanocobalamin [Vitamin B-12*] 1 tab PO DAILY 06/05/19 Docusate Sodium [Dulcolax Stool Softener] 1 tab PO BID 06/05/19 Gabapentin 2 tab PO DAILY 06/05/19 Metformin ER [Glucophage ER*] 2 tab PO DAILY 06/05/19 Orphenadrine Citrate 100 mg PO DAILY PRN 06/05/19 Cefuroxime [Ceftin] 250 mg PO BID #14 tab 06/06/19 Sumatriptan [Imitrex*] 50 mg PO Q12H PRN #27 tab 06/06/19 New Medications: Cefuroxime [Ceftin] 250 mg PO BID #14 tab Sumatriptan [Imitrex*] 50 mg PO Q12H PRN #27 tab PRN Reason: Pain Scale 8-10 (Severe) Followup: Edy Garcia MD [Primary Care Provider] - 1-2 Weeks ([facility] to schedule an appointment)
[2019-06-06] MEDS ORDERED: INSULIN -REGULAR HUMAN 50 UNIT/0.5 ML ML SQ ONE (13:59)
[2019-06-06 15:26] VITALS: BP 137/73; TEMP 97
--- NOTE | 2019-06-07 06:20 | EKG ---
Test Date: 2019-06-05 Test Time: 16:48:20 Bell Ringer: ISABELLE MEASUREMENT RESULTS: Intervals: Rate: 67 NH: 116 QRSD: 88 QT: 438 QTc: 462 [place]: P: 1 NH: 116 QRS: 19 T: 57 INTERPRETIVE STATEMENTS: Normal sinus rhythm Nonspecific ST and T wave abnormality Prolonged QT Abnormal ECG Compared to ECG 04/15/2018 15:14:14 Prolonged QT interval now present Possible ischemia no longer present ST (T wave) deviation still present Electronically Signed On 06-07-19 06:19:38 CDT by Simon Ho
[2019-06-09 19:16] LABS: Alpha Fetoprotein-Tumor Marker 2.4 ng/mL (<6.1)
[2019-06-10 20:45] LABS: HBsAG Nonreactive (Nonreactive)
== END 2019-06-06 15:10 | disposition home or self-care (01) ==
LOC: EDSTATUS 13:33 → ER 13:33 → ERHOLD 13:35 → 2ND 15:14
PROVIDERS: ADMIT Internal Medicine; ATTEND Internal Medicine
DX: J32.9 Chronic sinusitis, unspecified (principal); R51 Headache; I10 Essential (primary) hypertension; E11.9 Type 2 diabetes mellitus without complications
CPT/HCPCS: 93005; 85025 ×2; 80048 ×2; 36415 ×2; 83735 ×2; 82947; 84100; 85610; 82962 ×4; 80076; 85730; 84443; 83036; 82607; 86162; 82306; 82105; 86255 ×2; 86160 ×2; 86706; 80074; 74177; 71046; 70553; 94640 ×4; 99281; Q9967; A9577; J1650 ×2; J1170 ×4; J0696 ×2; J2920 ×2; G0378 ×3; J7512

== ENCOUNTER 2019-07-10 10:47 | Inpatient (IN) | payer BC ==
[2019-07-10] MEDS ORDERED: GLUCAGON 1 MG/VIAL IM PRN (11:55)
[2019-07-10] MEDS ORDERED: D50W 25 GM/50 ML SYRINGE/VIAL IV PRN (11:55)
[2019-07-10 12:32] LABS: Absolute Lymphocytes (CBC) 1.1 K/uL (0.7-4.9); Basophils % 0.6 % (0-1.3); Hematocrit 40.7 % (36.0-45.0); Lymphocytes % 12.3 % (15.3-44.8); MPV 8.3 fL (7.6-11.3); RBC Red Blood Cell Count 4.35 M/uL (3.86-4.86)
[2019-07-10 12:37] LABS: Protime INR 1.12
[2019-07-10 12:56] LABS: Albumin 3.7 g/dL (3.4-5.0); Bilirubin Direct 0.2 mg/dL (0-0.2); Bilirubin Total 0.6 mg/dL (0.2-1.0); Potassium 4.3 mmol/L (3.5-5.1); Thyroid Stimulating Hormone 0.731 uIU/mL (0.360-3.740)
[2019-07-10] MEDS ORDERED: ONDANSETRON 4 MG (ODT) TAB PO PRN (13:00)
[2019-07-10] MEDS: NACHLORIDE 0.45% 1,000 ML IV SCH (13:00)
[2019-07-10] MEDS ORDERED: POLYETHYL GLY 3350 17 GM/DOSE PO PRN (13:00)
[2019-07-10] MEDS ORDERED: DIPHENHYDRAMINE 25 MG TAB/CAP PO PRN (13:00)
[2019-07-10] MEDS ORDERED: LOPERAMIDE HCL 2 MG CAPSULE PO PRN (13:00)
[2019-07-10] MEDS ORDERED: ONDANSETRON 4 MG/2 ML VIAL IV PRN (13:00)
[2019-07-10] MEDS ORDERED: ACETAMINOPHEN 325 MG TABLET PO PRN (13:00)
[2019-07-10 13:40] VITALS: BMI 29.7
--- NOTE | 2019-07-10 14:25 | RAD REPORT ---
EXAM DESCRIPTION: CT - Abdomen Pelvis W Contrast - 07/10/2019 2:12 pm CLINICAL HISTORY: abscess, abdominal pain, pelvic pain COMPARISON: CT study June 05 TECHNIQUE: Biphasic, helical CT imaging of the abdomen and pelvis was performed following 100 ml non -ionic IV contrast. Oral contrast was given. All CT scans are performed using dose optimization technique as appropriate and may include automated exposure control or mA/KV adjustment according to patient size. FINDINGS: No suspicious findings in the lung bases. Fatty infiltration of the liver again noted. No new liver finding. Spleen and pancreas show no acute findings. Cholecystectomy clips again noted with no biliary tree dilatation. Symmetric renal function is seen with no hydronephrosis or suspicious renal mass. No pyelonephritis o r acute parenchymal process. No bladder abnormalities. No adrenal abnormalities. No dilated bowel loops or bowel wall thickening. Postsurgical changes noted to the stomach. Large betzy unt of stool distends the redundant sigmoid colon. No active colon process. In the peritoneal cavity there is no free air, free fluid or inflammatory stranding. No mass or bulky lymphadenopathy. No ome ntal thickening. Small ventral hernias are present above the umbilical level. Edematous/ inflammatory stranding is present in the skin and subcutaneous fatty tissues of the midlin e and lower right abdomen. In the deep subcutaneous fat abutting the anterior abdominal wall musculat ure a sessile low-density collection has developed this is 5-6 mm in thickness extending across a 6-7 centimeter area of the abdominal wall in the transverse dimension. Early abscess formation is possib le in this needs monitoring. Currently this is not a drainable fluid collection. Disc and bony degenerative changes are present. No acute vascular finding. IMPRESSION: Edematous/inflammatory stranding present in the skin and subcutaneous fatty tissues of t he lower abdominal wall. No air in the soft tissues. A sessile low-density collection has developed in the deep subcutaneous fatty tissues in this same re gion abutting the abdominal wall musculature. This is approximately 7 cm in transverse diameter with a 6 millimeter in thickness. Early abscess formation is certainly possible. This is not currently a drainable fluid collection. No intraperitoneal involvement.
--- NOTE | 2019-07-10 14:33 | RAD REPORT ---
EXAM DESCRIPTION: RAD - Chest Pa And Lat (2 Views) - 07/10/2019 2:21 pm CLINICAL HISTORY: pain, chest pain, lower abdominal pain COMPARISON: June 05 TECHNIQUE: PA and lateral views of the chest were obtained. FINDINGS: The lungs are clear. Lung markings are similar to comparison. Heart size is normal and ce ntral vasculature is within normal limits. No pleural effusion or pneumothorax seen. No acute bony finding noted. No aortic abnormality. IMPRESSION: No acute cardiopulmonary process. No significant change from comparison.
[2019-07-10] MEDS ORDERED: HYDROMORPHONE HCL 1 MG/ML INJ IV PRN (14:38)
[2019-07-10] MEDS: VANCOMYCIN 1.5 GM in NA CHLORIDE 0.9% 500 ML IVPB SCH (14:43)
[2019-07-10 15:03] LABS: Urine Appearance CLEAR; Urine Bilirubin NEGATIVE (NEG); Urine Blood NEGATIVE (NEG); Urine Color YELLOW; Urine Glucose 3+ (NEG); Urine Protein NEGATIVE (NEG); Urine Urobilinogen 0.2 mg/dL (0.2-1.0); Urine pH 5.5 (5.0-7.0)
[2019-07-10 15:11] LABS: Urine Microscopic Reflex NO UMIC
[2019-07-10 15:30] LABS: UR CREAT < 13.0 mg/dL (20-320); UR MICROALBUMIN < 0.5 mg/dL (< 1.9)
[2019-07-10] MEDS: INSULIN -REGULAR HUMAN 50 UNIT/0.5 ML ML SQ SCH ×2 (17:11→21:00)
--- NOTE | 2019-07-10 20:01 | CON ---
Date of Consultation: 07/10/2019 Reason For Consultation: Possible abscess right abdomen. History Of Present Illness: The patient is a 59-year-old female, who presents to the hospital from Jarod Garcia's office with 2 weeks history of wounds that would not heal associated with redness, pain, a nd no purulent discharge. No fever or chills. The infected wounds, that are 3 mm are at the level o f the belt. She thinks it may be irritation that or an insect bite. No sore throat, runny nose, cou gh, headaches, or dizziness. No chest pain. Review of Systems: Otherwise unremarkable. Past Medical History: Significant for diabetes, hypertension, high cholesterol, anxiety. Past Surgical History: Gastric bypass, hysterectomy, , hernia repair, abdominoplasty. Allergies: INCLUDE SULFA. Social History: She does not smoke or drink. Family History: Noncontributory. Patient is adopted. Physical Examination: Vital Signs: Stable. She is afebrile. General: She is awake, alert, and oriented x3. Head And Neck: Cranial nerves 2 through 12 are grossly within normal limits. No neck masses. No JV D. Throat clear. Neck supple. Chest: Clear. Heart: S1 and S2. Abdomen: Soft. Extremities: Neurovascularly intact. Neuro: Nonfocal. On the right abdominal wall, there are 3 wounds, 2 of them are about 2 cm and 1.5 cm laterally and 1 medially is approximately 6 x 3 cm. There is a necrotic fibrinous exudate on top, edges of the wound are red. There is some induration underneath larger wound, but it is tender. Laboratory Data: White count is 9000 with a slight left shift. INR is 1.12. Chemistry reviewed. C T of the abdomen and pelvis reviewed with Dr. Clark shows edematous inflammatory stranding present in the skin and subcutaneous tissue in the midline and lower right abdomen IN THE deep subcutaneous f at abutting the anterior abdominal wall musculature. Sessile low-density collection has developed, t his is 5-6 mm in thickness, extending across 6-7 cm area in the abdominal wall in the transverse dime nsion. Early abscess formation is possible and the need for monitoring. Currently, there is not a d rainable fluid collection. No air in the soft tissue and no intraperitoneal involvement. Assessment: A 59-year-old female with multiple medical problems with an infected wound with developi ng abscess and cellulitis in the right abdomen x3. Recommendation: We will go ahead and start patient on antibiotics n.p.o. To the OR for incision, dr morgan, and debridement of those 3 wounds. Patient understands the risks, benefits, and alternatives and agrees to the procedure. THELMA/TANIA Voice ID: [id number] Report ID: [id number]
[2019-07-10] MEDS: HYDROMORPHONE HCL 1 MG/ML INJ IV PRN (21:49)
[2019-07-11] MEDS: HYDROMORPHONE HCL 1 MG/ML INJ IV PRN ×2 (05:32→17:46)
[2019-07-11 05:50] LABS: Absolute Lymphocytes (CBC) 2.1 K/uL (0.7-4.9); Basophils % 0.9 % (0-1.3); Hematocrit 38.2 % (36.0-45.0); MPV 8.3 fL (7.6-11.3); RBC Red Blood Cell Count 4.07 M/uL (3.86-4.86)
[2019-07-11 05:59] LABS: BUN Blood Urea Nitrogen 13 mg/dL (7-18); Bicarbonate 29 mmol/L (21-32); Glucose Level 133 mg/dL (74-106); Magnesium 1.9 mg/dL (1.8-2.4); Phosphorus 3.9 mg/dL (2.5-4.9); Potassium 3.7 mmol/L (3.5-5.1); Sodium Level 141 mmol/L (136-145)
[2019-07-11] MEDS: INSULIN -REGULAR HUMAN 50 UNIT/0.5 ML ML SQ SCH ×4 (07:30→20:20)
[2019-07-11] MEDS: VANCOMYCIN 1.5 GM in NA CHLORIDE 0.9% 500 ML IVPB SCH (08:00)
[2019-07-11] MEDS: ALPRAZOLAM 0.5 MG TABLET PO SCH ×3 (08:26→20:18)
[2019-07-11] MEDS: NA CHLORIDE 0.9% 1,000 ML ONE ×2 (08:48→08:53)
[2019-07-11] MEDS ORDERED: PROPOFOL 200 MG/20 ML VIAL IV ONE (08:55)
[2019-07-11] MEDS ORDERED: LIDOCAINE 2% MPF 5 ML VIAL ONE (08:55)
[2019-07-11] MEDS ORDERED: FENTANYL CITR 100 MCG/2 ML ONE (08:55)
[2019-07-11] MEDS: CYANOCOBALAMIN 1,000 MCG TAB PO SCH (09:00)
[2019-07-11] MEDS: ORPHENADRINE CITRATE 100 MG PO SCH ×2 (09:00→20:21)
[2019-07-11] MEDS: DOCUSATE NA 100 MG CAP PO SCH ×2 (09:00→20:19)
[2019-07-11] MEDS: SERTRALINE HCL 100 MG TAB PO SCH (09:00)
[2019-07-11] MEDS ORDERED: HOME MED 1 EA UNK (Buspirone Hcl [Buspar] 10 MG) PO SCH (09:00)
[2019-07-11] MEDS ORDERED: POTASSIUM CL SA 10 MEQ TAB PO ONE ×2 (09:00→21:00)
[2019-07-11] MEDS: HOME MED 1 EA UNK (Cyclosporine [Restasis] 1 DROP) EACH EYE SCH ×2 (09:00→20:19)
[2019-07-11] MEDS: FOLIC ACID 1 MG TABLET PO SCH (09:00)
[2019-07-11] MEDS: GABAPENTIN 300 MG CAP PO SCH ×2 (09:00→20:18)
[2019-07-11] MEDS: predniSONE 5 MG TAB PO SCH (09:00)
[2019-07-11] MEDS ORDERED: KCL 20 MEQ/100 mL IVPB 20 MEQ/100 ML BAG IV SCH (09:00)
[2019-07-11] MEDS: ENOXAPARIN 40 MG/0.4 ML SQ SCH (09:00)
[2019-07-11] MEDS ORDERED: HOME MED 1 EA UNK (Cholecalciferol (Vitamin D3) [Vitamin D3] 1,000 UNIT) PO SCH (09:00)
[2019-07-11] MEDS: METFORMIN PO SCH ×2 (09:00→20:19)
[2019-07-11] MEDS ORDERED: [UNRECOGNIZED DRUG - OTHER] TOP SCH ×2 (09:00→21:00)
[2019-07-11] MEDS: ERTUGLIFLOZIN PO SCH ×2 (09:00→20:19)
[2019-07-11] MEDS ORDERED: dexAMETHasone 10 MG/ML VIAL ONE (09:19)
[2019-07-11] MEDS ORDERED: ONDANSETRON 4 MG/2 ML VIAL ONE (09:19)
--- NOTE | 2019-07-11 09:30 | P.OP ---
Preoperative diagnosis: Infected Wounds Abdominal Wall x 3 Postoperative diagnosis: same Primary procedure: Excisional Debridement Infected Abdominal x3. 7x4cm, 2x2 cm , 1x1cm to sq Anesthesia: General Estimated blood loss: min Specimen: Infected Tissue c&s Findings: as above Complications: None Transferred to: Recovery Room Condition: Good
[2019-07-11] MEDS ORDERED: KETOROLAC 30 MG/ML INJ ONE (09:54)
[2019-07-11] MEDS: DOXEPIN HCL 25 MG CAP PO SCH (20:18)
[2019-07-11] MEDS: BUSPIRONE HCL 5 MG TABLET PO SCH (20:18)
[2019-07-11] MEDS: DULOXETINE 30 MG CAP PO SCH (20:18)
[2019-07-11] MEDS: PROPRANOLOL HCL 60 MG SA CAP PO SCH (20:19)
[2019-07-11] MEDS: CODEINE 30MG/APAP 300MG TAB PO PRN (20:22)
--- NOTE | 2019-07-11 20:47 | OP ---
Date of Procedure: 07/11/2019 Surgeon: Elias Nagy MD Preoperative Diagnosis: Infected abdominal wound x3. Postoperative Diagnosis: Infected abdominal wound x3. Procedure: Excision and debridement of infected abdominal wounds x3 to subcutaneous tissue; one was 7 x 4 cm, one was 2 x 2 cm, and one was 1 x 1 cm. Estimated Blood Loss: Minimal. Specimen: Infected tissue. Finding: As above. Anesthesia: General. Complications: None. Disposition: The patient tolerated the procedure in stable condition, taken to Recovery in good gene ral condition. Description Of Procedure: Patient was brought to the OR and placed in supine position. General anes thesia was begun. Patient was prepped and draped in the usual sterile fashion. Marcaine 0.5% was in filtrated all the way around all 3 of the wounds and then 15 blade was used to excise the necrotic ti ssue that was present down to the subcutaneous tissue in all 3 wounds and parts of them were sent for cultures. It was 1 x 1 cm, that was the middle wound. The lateral wound was 2 x 2 cm, and the medi al wound was 7 x 4 cm. Bleeding was controlled with cautery. Wound irrigated and good healthy tissu e was obtained. All the necrotic tissue was excised and then we will allow for secondary closure of the wounds given the infection issues with the patient. Then, sterile dressing was applied, wet-to-d ry. Patient tolerated procedure in stable condition, awakened, taken to Recovery in good general condition. THELMA/TANIA Voice ID: [id number] Report ID: [id number]
[2019-07-11] MEDS ORDERED: NYSTATIN PWDR 100000 UNIT/GM TOP SCH (21:00)
[2019-07-11] MEDS ORDERED: HOME MED 1 EA UNK (Duloxetine Hcl [Duloxetine Hcl] 60 MG) PO SCH (21:00)
--- NOTE | 2019-07-11 21:23 | PN ---
Subjective: Patient is seen before surgery today. She was in the OR waiting area, comfortable, wait ing for abdominal wall multiple abscess surgery. This is most likely an MRSA infection. Physical Examination: Vital Signs: Blood pressure is 102/50, temperature is 97. General: Patient is comfortable otherwise. Chest: Clear. Heart: Regular. Abdomen: No guarding, no rebound, no rigidity. Visible infection in the lower part of abdomen. Are as of ulcers anywhere from 2 x 2 cm to 8 x 8 cm and the largest ulcer has indurated central area, whi ch could be an abscess. Assessment And Plan: Methicillin-resistant Staphylococcus aureus infection of the abdominal wall as described above. Debridement. IV vancomycin. She did not tolerate doxycycline in the past, had pro blem with Bactrim before. I would like to give her Zyvox on outpatient which would wait until Saturday . Insurance company may not pay for this medication. Until then, she will be on vancomycin IV and a fter that will be on home antibiotics and home health therapy. VICKEY/TANIA Voice ID: [id number] Report ID: [id number]
[2019-07-11] MEDS: NACHLORIDE 0.45% 1,000 ML IV SCH (22:20)
[2019-07-12] MEDS: VANCOMYCIN 1.5 GM in NA CHLORIDE 0.9% 500 ML IVPB SCH ×2 (01:04→20:53)
[2019-07-12] MEDS: HYDROMORPHONE HCL 1 MG/ML INJ IV PRN ×3 (01:09→17:01)
[2019-07-12] MEDS: CODEINE 30MG/APAP 300MG TAB PO PRN ×2 (04:53→14:16)
[2019-07-12] MEDS: THYROID 30 MG TAB PO SCH (05:34)
[2019-07-12 05:56] LABS: Potassium 4.5 mmol/L (3.5-5.1)
[2019-07-12] MEDS: INSULIN -REGULAR HUMAN 50 UNIT/0.5 ML ML SQ SCH ×4 (07:30→20:57)
[2019-07-12] MEDS: NACHLORIDE 0.45% 1,000 ML IV SCH (08:25)
[2019-07-12] MEDS: ENOXAPARIN 40 MG/0.4 ML SQ SCH (08:36)
[2019-07-12] MEDS: SERTRALINE HCL 100 MG TAB PO SCH (08:37)
[2019-07-12] MEDS: ALPRAZOLAM 0.5 MG TABLET PO SCH ×3 (08:37→20:54)
[2019-07-12] MEDS: VITAMIN D 1000 UNIT TAB PO SCH (08:37)
[2019-07-12] MEDS: FOLIC ACID 1 MG TABLET PO SCH (08:37)
[2019-07-12] MEDS: BUSPIRONE HCL 5 MG TABLET PO SCH ×2 (08:38→20:55)
[2019-07-12] MEDS: GABAPENTIN 300 MG CAP PO SCH ×2 (08:38→20:54)
[2019-07-12] MEDS: DOCUSATE NA 100 MG CAP PO SCH ×2 (08:38→20:55)
[2019-07-12] MEDS: ORPHENADRINE CITRATE 100 MG PO SCH ×2 (08:39→20:58)
[2019-07-12] MEDS: HOME MED 1 EA UNK (Cyclosporine [Restasis] 1 DROP) EACH EYE SCH ×2 (08:39→20:56)
[2019-07-12] MEDS: predniSONE 5 MG TAB PO SCH (08:39)
[2019-07-12] MEDS: CYANOCOBALAMIN 1,000 MCG TAB PO SCH (08:39)
[2019-07-12] MEDS: ERTUGLIFLOZIN PO SCH ×2 (08:40→20:56)
[2019-07-12] MEDS: METFORMIN PO SCH ×2 (08:40→20:56)
[2019-07-12 14:08] LABS: Urine Appearance CLEAR; Urine Bilirubin NEGATIVE (NEG); Urine Blood NEGATIVE (NEG); Urine Color YELLOW; Urine Glucose 3+ (NEG); Urine Protein NEGATIVE (NEG); Urine Urobilinogen 0.2 mg/dL (0.2-1.0); Urine pH 5.5 (5.0-7.0)
[2019-07-12 14:09] LABS: Urine Microscopic Reflex ORDER UMIC
[2019-07-12 14:52] LABS: Urine Bacteria <20 /HPF (<20); Urine Culture Reflex Order REFLEXED; Urine RBC <5 /HPF (NONE SEEN)
--- NOTE | 2019-07-12 14:53 | PN ---
Date of Progress Note: 07/12/2019 Subjective: Patient with no complaint. Objective: Vital Signs: Stable. Afebrile. Abdomen: Benign. Dressing is clean, dry, and intact. Laboratory Data: Culture is pending. Assessment: Excision and debridement of the right abdominal wall wound x3. Recommendations: Continue wound care as ordered. IV antibiotics as ordered. Check cultures. Adjus t antibiotics. Discharge planning. Follow up in the wound healing center upon discharge in my clini cSulema RENEE/MODStefano Voice ID: [id number] Report ID: [id number]
[2019-07-12] MEDS: DULOXETINE 30 MG CAP PO SCH (20:54)
[2019-07-12] MEDS: DOXEPIN HCL 25 MG CAP PO SCH (20:54)
[2019-07-12] MEDS: PROPRANOLOL HCL 60 MG SA CAP PO SCH (20:55)
--- NOTE | 2019-07-12 23:09 | PN ---
Subjective: Ms. Sethi is feeling a lot better. Denies chest pain, nausea, vomiting. She has po stoperative abdominal wall pain from her surgery yesterday. Physical Examination: Vital Signs: Blood pressure 107/64, pulse is 74, sugar 160, temperature 97.3. HEENT: No JVD. No carotid bruits. Chest: Clear. Heart: Regular. Abdomen: No guarding, no rebound, no rigidity. Laboratory Data: On lab examination, white count is normal at 8300, BUN 14, creatinine 0.68. Urine shows 1+ esterase, which negative. Assessment And Plan: 1.Possible methicillin-resistant Staphylococcus aureus infection of abdominal wall. It is growing a ctually enterococcus faecalis on the culture, sensitive to ampicillin, which is a good news so far. If that is what she is going to need orally, we will decide this tomorrow. Patient stool cultures ar e pending. 2.Diabetes mellitus. Her A1c is 7.4, which is not terrible for someone with her medical problems. She has multiple medical issues. She is taking multiple different medications. She is on Jardiance. 3.Chronic state of anxiety, on medications from Psychiatry, Xanax, BuSpar, doxepin, duloxetine. 4.Chronic neuropathy. Continue gabapentin. 5.Complaint of vaginal pain, possibly because of antibiotics. She has some yeast infection that I w ill give her Diflucan for in a couple of days. She is also on long-term prednisone for lupus. 6.Hypothyroidism. Continue thyroid supplementation. [place] Thyroid 30 mg once a day. VICKEY/MODL Voice ID: [id number] Report ID: [id number]
[2019-07-13] MEDS: THYROID 30 MG TAB PO SCH (05:59)
[2019-07-13] MEDS: INSULIN -REGULAR HUMAN 50 UNIT/0.5 ML ML SQ SCH (07:30)
[2019-07-13] MEDS: ORPHENADRINE CITRATE 100 MG PO SCH (09:00)
[2019-07-13] MEDS ORDERED: FLUCONAZOLE 100 MG TAB PO SCH (09:00)
[2019-07-13] MEDS: METFORMIN PO SCH (09:00)
[2019-07-13] MEDS: ERTUGLIFLOZIN PO SCH (09:00)
[2019-07-13] MEDS: HOME MED 1 EA UNK (Cyclosporine [Restasis] 1 DROP) EACH EYE SCH (09:00)
[2019-07-13] MEDS: GABAPENTIN 300 MG CAP PO SCH (09:14)
[2019-07-13] MEDS: ENOXAPARIN 40 MG/0.4 ML SQ SCH (09:14)
[2019-07-13] MEDS: CYANOCOBALAMIN 1,000 MCG TAB PO SCH (09:15)
[2019-07-13] MEDS: BUSPIRONE HCL 5 MG TABLET PO SCH (09:15)
[2019-07-13] MEDS: DOCUSATE NA 100 MG CAP PO SCH (09:15)
[2019-07-13] MEDS: VITAMIN D 1000 UNIT TAB PO SCH (09:15)
[2019-07-13] MEDS: FOLIC ACID 1 MG TABLET PO SCH (09:15)
[2019-07-13] MEDS: ALPRAZOLAM 0.5 MG TABLET PO SCH (09:15)
[2019-07-13] MEDS: HYDROMORPHONE HCL 1 MG/ML INJ IV PRN (09:16)
[2019-07-13] MEDS: SERTRALINE HCL 100 MG TAB PO SCH (09:16)
[2019-07-13] MEDS: predniSONE 5 MG TAB PO SCH (09:20)
[2019-07-13 10:20] VITALS: O2SAT 98
[2019-07-13 10:29] VITALS: BP 137/72; TEMP 97.4
[2019-07-13] MEDS ORDERED: VANCOMYCIN 1.75 GM in NA CHLORIDE 0.9% 500 ML IVPB SCH (14:00)
--- NOTE | 2019-07-13 17:55 | P.DS ---
Admission Date: 07/10/19 Discharge Date: 07/13/19 Disposition: ROUTINE DISCHARGE Discharge Condition: FAIR Hospital Course: MS. CYR HAS LARGE LOWRE ABDOMEN WOUND. IT IS GROWING E FECALIS. I GAVE ABX, AMPICILLIN, ANDWOUND ORDERS BY DR FAJARDO. STABLE FOR DC. Vital Signs/Physical Exam: Temp Pulse Resp BP Pulse Ox 97.4 F 72 18 137/72 98 07/13/19 08:00 07/13/19 08:00 07/13/19 08:00 07/13/19 08:00 07/13/19 08:00 Laboratory Data at Discharge: WBC 8.3 K/uL (4.3-10.9) 07/11/19 05:17 Hgb 13.6 g/dL (12.0-15.0) 07/11/19 05:17 Hct 38.2 % (36.0-45.0) 07/11/19 05:17 Plt Count 212 K/uL (152-406) 07/11/19 05:17 PT 13.2 SECONDS (9.5-12.5) H 07/10/19 11:57 INR 1.12 07/10/19 11:57 APTT 39.1 SECONDS (24.3-36.9) H 07/10/19 11:57 Sodium 143 mmol/L (136-145) 07/12/19 05:09 Potassium 4.5 mmol/L (3.5-5.1) 07/12/19 05:09 BUN 14 mg/dL (7-18) 07/12/19 05:09 Creatinine 0.68 mg/dL (0.55-1.3) 07/12/19 05:09 Glucose 135 mg/dL (74-106) H 07/12/19 05:09 Phosphorus 3.9 mg/dL (2.5-4.9) 07/11/19 05:17 Magnesium 1.9 mg/dL (1.8-2.4) 07/11/19 05:17 Total Bilirubin 0.6 mg/dL (0.2-1.0) 07/10/19 11:52 AST 12 U/L (15-37) L 07/10/19 11:52 ALT 25 U/L (12-78) 07/10/19 11:52 Alkaline Phosphatase 119 U/L (45-117) H 07/10/19 11:52 Home Medications: Duloxetine HCl 60 mg PO BEDTIME 04/15/18 Omeprazole 40 mg PO [id number] 04/15/18 Propranolol [Inderal LA*] 60 mg PO BEDTIME 04/15/18 Sertraline [Zoloft*] 2 tab PO DAILY 04/15/18 predniSONE [Prednisone*] 5 mg PO DAILY 04/15/18 Alprazolam [Xanax] 1 mg PO TID 04/18/18 Buspirone HCl [Buspar] 10 mg PO BID 04/18/18 Doxepin HCl 25 mg PO BEDTIME 04/18/18 Folic Acid 2 tab PO DAILY 04/18/18 Thyroid Tab [[place] Thyroid*] 30 mg PO BEDTIME 04/18/18 Cyanocobalamin [Vitamin B-12*] 1 tab PO DAILY 06/05/19 Docusate Sodium [Dulcolax Stool Softener] 1 tab PO BID 06/05/19 Gabapentin 2 tab PO BID 06/05/19 Orphenadrine Citrate 100 mg PO BID 06/05/19 Cholecalciferol (Vitamin D3) [Vitamin D3] 1,000 unit PO DAILY 07/10/19 Codeine/APAP [Tylenol #3*] 1 tab PO Q6HP PRN 07/10/19 Cyclosporine [Restasis] 1 drop EACH EYE BID 07/10/19 Ertugliflozin/Metformin [Segluromet 2.5-1,000 mg Tablet] 1 each PO BID 07/10/19 Lotrisone Cream 1-0.05% 1 ena TOP BID 07/10/19 Multivit with Calcium,Iron,Min [One Daily Women's] 1 each PO DAILY 07/10/19 Nystatin Powder [id number] 1 appl TOP BID 07/10/19 Acetaminophen [Tylenol*] 650 mg PO Q6HP PRN tab 07/13/19 Ampicillin Trihydrate [Omnipen Cap] 500 mg PO QID #40 cap 07/13/19 Fluconazole [Diflucan] 100 mg PO DAILY 5 Days #5 tablet 07/13/19 New Medications: Ampicillin Trihydrate [Omnipen Cap] 500 mg PO QID #40 cap Fluconazole [Diflucan] 100 mg PO DAILY 5 Days #5 tablet Followup: Edy Garcia MD [Primary Care Provider] - Elias Nagy MD [ACTIVE - CAN ADMIT] -
== END 2019-07-13 11:56 | disposition home or self-care (01) | DRG 581 ==
LOC: 2ND 11:07
PROVIDERS: ADMIT Internal Medicine; ATTEND Internal Medicine
PROC: 0JD80ZZ Extraction of Abdomen Subcutaneous Tissue and Fascia, Open Approach (ICD-10-PCS; principal; 2019-07-11 09:00)
DX: L02.211 Cutaneous abscess of abdominal wall (principal); B95.2 Enterococcus as the cause of diseases classified elsewhere; F41.9 Anxiety disorder, unspecified; E11.40 Type 2 diabetes mellitus with diabetic neuropathy, unspecified; B37.3 Candidiasis of vulva and vagina; E03.9 Hypothyroidism, unspecified
CPT/HCPCS: 36415; 71046; 74177; 80048; 80076; 80202; 81003; 81015; 82043; 82306; 82570; 82607; 82947; 83036; 83735; 84100; 84443; 85025; 85610; 85730; 87040; 87070; 87075; 87077; 87086; 87088; 87186; 87205; 88304; J1100; J1170; J1650; J2405; J2704; J3010; J7030; J7040; J7512; Q9967

== ENCOUNTER 2022-06-04 10:16 | Emergency (ER) | payer BC, OTHER ==
--- NOTE | 2022-06-04 11:37 | RAD REPORT ---
EXAM DESCRIPTION: CT - [id number] - 06/04/2022 11:25 am CLINICAL HISTORY: Trauma, head and neck injury. fall COMPARISON: No comparisons TECHNIQUE: Axial 5 mm thick images of the head were obtained. Axial 2 mm thick images of the cervical spine were obtained with sagittal and coronal reconstruction images generated and reviewed. All CT scans are performed using dose optimization technique as appropriate and may include automated exposure control or mA/KV adjustment according to patient size. FINDINGS: CT HEAD WITHOUT CONTRAST: No acute hemorrhage, hydrocephalus or extra-axial collection is identified.Mild brain atrophy.No area s of brain edema or midline shift. The paranasal sinuses and mastoids are clear.The calvarium is intact. CT CERVICAL SPINE WITHOUT CONTRAST: No fracture or subluxation.No prevertebral soft tissues swelling is identified. Carotid atheroscleros is, greater on the left. IMPRESSION: No acute intracranial or cervical spine findings.
--- NOTE | 2022-06-04 11:37 | RAD REPORT ---
EXAM DESCRIPTION: RAD - Chest Single View - 06/04/2022 11:32 am CLINICAL HISTORY: fall Chest pain. COMPARISON: Chest Pa And Lat (2 Views) dated 01/12/2022; Chest Pa And Lat (2 Views) dated 07/10/2019; Chest Pa And Lat (2 Views) dated 06/05/2019; CHEST SINGLE VIEW dated 09/28/2015 FINDINGS: Portable technique limits examination quality. The lungs are grossly clear. The heart is normal in size. No displaced fractures. IMPRESSION: No acute intrathoracic process suspected.
[2022-06-04] MEDS ORDERED: KETOROLAC 30 MG/ML INJ ONE (12:00)
[2022-06-04 12:11] LABS: Absolute Lymphocytes (CBC) 1.7 K/uL (0.7-4.9); Hematocrit 42.5 % (36.0-45.0); Lymphocytes % 14.6 % (15.3-44.8); RBC Red Blood Cell Count 4.62 M/uL (3.86-4.86)
[2022-06-04 12:31] LABS: Albumin 3.4 g/dL (3.4-5.0); Bilirubin Direct 0.2 mg/dL (0-0.2); Bilirubin Total 0.4 mg/dL (0.2-1.0); Ferritin 31.7 ng/mL (8-388); Magnesium 2.4 mg/dL (1.8-2.4); Potassium 4.4 mmol/L (3.5-5.1); Protein, Total 6.5 g/dL (6.4-8.2); Thyroid Stimulating Hormone 1.08 uIU/mL (0.360-3.740)
--- NOTE | 2022-06-04 13:07 | EDPHYS ---
Physician Documentation [facility] Name: Tania Sethi Age: 61 yrs Sex: Female : 1960 Arrival Date: 06/04/2022 Time: 10:19 Bed 7 Private MD: Edy Garcia V ED Physician David Hernandez HPI: 06/04 11:21 This 61 yrs old Female presents to ER via Ambulatory with complaints of Fall Injury. snw 11:21 Details of fall: The patient fell from an upright position, while standing. Onset: The snw symptoms/episode began/occurred suddenly, 4 day(s) ago. Associated injuries: The patient sustained injury to the head, injury to the chest, heel of left hand and left knee, abrasion, contusion. Severity of symptoms: At their worst the symptoms were moderate. The patient has experienced similar episodes in the past. sees Dr. Garcia. hx of RA, Lupus. Historical: - Allergies: 10:49 Glipizide; ap3 10:49 Sulfa (Sulfonamide Antibiotics); ap3 - PMHx: 10:49 diabetes mellitus; Hypercholesterolemia; Hypertensive disorder; Hypothyroidism; Lupus ap3 erythematosus; RA; - PSHx: 10:49 abdominal SX-twisted bowel; section; ap3 - Immunization history:: Client reports receiving the 2nd dose of the Covid vaccine. - Social history:: Smoking status: Patient denies any tobacco usage or history of. ROS: 11:18 Eyes: Negative for injury, pain, redness, and discharge, ENT: Negative for injury, snw pain, and discharge, Neck: Negative for injury, pain, and swelling, Cardiovascular: Negative for chest pain, palpitations, and edema, chest wall between diaphragm and proximal esophagus tender Respiratory: Negative for shortness of breath, cough, wheezing, and pleuritic chest pain, Abdomen/GI: Negative for abdominal pain, nausea, vomiting, diarrhea, and constipation, Back: Negative for injury and pain, : Negative for injury, bleeding, discharge, and swelling. 11:18 Constitutional: Positive for frequent falls, 6 falls recently, most recent on . Pt states she just stepped down from a vehicle and fell into the guardrail. No Loc but pt did strike her head and c/o tenderness to occiput and right frontal area. 11:18 MS/extremity: Positive for tenderness, of the heel of left hand and left knee. 11:18 Skin: Positive for abrasion(s). 11:18 Neuro: Positive for gait disturbance, frequent falls. Exam: 11:15 Head/Face: Normocephalic, atraumatic. Eyes: Pupils equal round and reactive to light, snw extra-ocular motions intact. Lids and lashes normal. Conjunctiva and sclera are non-icteric and not injected. Cornea within normal limits. Periorbital areas with no swelling, redness, or edema. ENT: Nares patent. No nasal discharge, no septal abnormalities noted. Tympanic membranes are normal and external auditory canals are clear. Oropharynx with no redness, swelling, or masses, exudates, or evidence of obstruction, uvula midline. Mucous membranes moist. 11:15 Chest/axilla: Normal chest wall appearance and motion. Nontender with no deformity. No lesions are appreciated. Cardiovascular: Regular rate and rhythm with a normal S1 and S2. No gallops, murmurs, or rubs. Normal PMI, no JVD. No pulse deficits. Respiratory: Lungs have equal breath sounds bilaterally, clear to auscultation and percussion. No rales, rhonchi or wheezes noted. No increased work of breathing, no retractions or nasal flaring. Abdomen/GI: Soft, non-tender, with normal bowel sounds. No distension or tympany. No guarding or rebound. No evidence of tenderness throughout. Back: No spinal tenderness. No costovertebral tenderness. Full range of motion. Skin: Warm, dry with normal turgor. Normal color with no rashes, no lesions, and no evidence of cellulitis. Neuro: Awake and alert, GCS 15, oriented to person, place, time, and situation. Cranial nerves II-XII grossly intact. Motor strength 5/5 in all extremities. Sensory grossly intact. Cerebellar exam normal. Normal gait. Psych: Awake, alert, with orientation to person, place and time. Behavior, mood, and affect are anxious. 11:15 Constitutional: The patient appears alert, awake, anxious, pale. 11:15 Neck: External neck: is normal, C-spine: appears grossly normal, occipital area tenderness. 11:15 Musculoskeletal/extremity: Extremities: grossly normal except: noted in the left knee: abrasion, contusion, noted in the heel of left hand: abrasion. Vital Signs: 10:46 BP 111 / 81; Pulse 79; Resp 18; Pulse Ox 100% ; Weight 70.31 kg; Height 5 ft. 2 in. ap3 (157.48 cm); Pain 10/10; 11:06 BP 129 / 102; Pulse 84; Resp 16; Pulse Ox 98% on R/A; db 12:30 BP 120 / 79; Pulse 71; Resp 16; Pulse Ox 95% ; Pain 6/10; db 13:30 BP 115 / 70; Pulse 70; Resp 18; Pulse Ox 100% ; Pain 4/10; db 10:46 Body Mass Index 28.35 (70.31 kg, 157.48 cm) ap3 NIH Stroke Scale Scores: 11:15 NIHSS Score: 0 snw MDM: 11:02 Patient medically screened. jr11 13:05 Data reviewed: vital signs, nurses notes. Data interpreted: Pulse oximetry: on room air snw is 95 %. Interpretation: acceptable. Counseling: I had a detailed discussion with the patient and/or guardian regarding: the historical points, exam findings, and any diagnostic results supporting the discharge/admit diagnosis, lab results, radiology results, the need for outpatient follow up, for definitive care, a neurologist, to return to the emergency department if symptoms worsen or persist or if there are any questions or concerns that arise at home. Response to treatment: the patient's symptoms have mildly improved after treatment. Special discussion: Based on the patient's history, exam and DX evaluation, there is no indication for emergent intervention or inpatient TX. It is understood by the patient/guardian that if the SXs persist or worsen they need to return immediately for re-evaluation. Based on the history and exam findings, there is no indication for further emergent testing or inpatient evaluation. I discussed with the patient/guardian the need to see the neurologist for further evaluation of the symptoms. 06/04 11:13 Order name: Basic Metabolic Panel snw 06/04 11:13 Order name: CBC with Diff snw 06/04 11:13 Order name: LFT's snw 06/04 11:13 Order name: Magnesium snw 06/04 11:13 Order name: Ferritin snw 06/04 11:13 Order name: TSH snw 06/04 11:13 Order name: XRAY Chest (1 view) snw 06/04 11:13 Order name: CT Head C Spine snw 06/04 12:14 Order name: CBC with Automated Diff; Complete Time: 12:15 EDMS 06/04 12:31 Order name: Basic Metabolic Panel; Complete Time: 12:34 EDMS 06/04 12:31 Order name: Liver (Hepatic) Function; Complete Time: 12:34 EDMS 06/04 12:31 Order name: Magnesium; Complete Time: 12:34 EDMS 06/04 12:31 Order name: Thyroid Stimulating Hormone; Complete Time: 12:34 EDMS 06/04 12:31 Order name: Ferritin; Complete Time: 12:34 EDMS 06/04 11:13 Order name: EKG; Complete Time: 11:14 snw 06/04 11:13 Order name: Cardiac monitoring; Complete Time: 11:58 snw 06/04 11:13 Order name: EKG - Nurse/Tech; Complete Time: 12:35 snw 06/04 11:13 Order name: IV Saline Lock; Complete Time: 11:53 snw 06/04 11:13 Order name: Labs collected and sent; Complete Time: 11:58 snw 06/04 11:13 Order name: O2 Sat Monitoring; Complete Time: 11:46 snw 06/04 11:37 Order name: CT; Complete Time: 11:40 EDMS 06/04 11:37 Order name: RAD; Complete Time: 11:40 EDMS EC:22 Rate is 72 beats/min. Rhythm is regular. QRS [place] is Normal. [place] interval is normal. T snw waves are Inverted in leads aVR, V2. Clinical impression: NSR w/ Non-specific ST/T Changes. Administered Medications: 12:05 Drug: Ketorolac 30 mg Route: IVP; Site: right antecubital; db 12:55 Follow up: Response: No adverse reaction db Disposition: 13:52 PA/SENIOR ARCHITECT's history reviewed, patient interviewed, and examined. I agree with assessment jr11 and care plan and confirm the diagnosis (es) above. Attestation: The patient's history, exam findings, diagnostics, and a summary of any interventions or procedures was reviewed in detail with Quiana RUIZ. Disposition Summary: 06/04/22 13:06 Discharge Ordered Location: Home snw Condition: Stable snw Diagnosis - Fall on same level from slipping, tripping and stumbling with subsequent striking snw against object Followup: snw - With: Edy Garcia MD - When: 1 - 2 days - Reason: Recheck today's complaints, Continuance of care, Re-evaluation by your physician Followup: snw - With: Emergency Department - When: As needed - Reason: Worsening of condition Discharge Instructions: - Discharge Summary Sheet snw - Contusion snw - Head Injury, Adult snw - Fall Prevention in the Home, Adult snw Forms: - Medication Reconciliation Form snw - Thank You Letter snw - Antibiotic Education snw - Prescription Opioid Use snw Prescriptions: - Diclofenac Sodium 75 mg Oral Tablet Sustained Release - take 1 tablet by ORAL route 2 times per day; 30 tablet; Refills: 0, Product snw Selection Permitted NIH Stroke Scale - NIH Stroke Score Date: 06/04/2022 Time: 11:15 Total Score = 0 1a. Level of Consciousness (LOC) - 0(Alert) 1b. Level of Consciousness (LOC) (Month \T\ Age) - 0(Both) 1c. LOC Commands (Open \T\ Closes Eyes/Hand Printed Circuit Board Assembler) - 0(Both) 2. Best Gaze (Lateral Gaze Paresis) - 0(Normal) 3. Visual Field Loss - 0(No visual loss) 4. Facial Palsy - 0(Normal) 5a. Left Arm: Motor (10-second hold) - 0(No drift) 5b. Right Arm: Motor (10-second hold) - 0(No drift) 6a. Left Leg: Motor (5-second hold - always test supine) - 0(No drift) 6b. Right Leg: Motor (5-second hold - always test supine) - 0(No drift) 7. Limb Ataxia (finger/nose \T\ heel/lombardo - test with eyes open) - 0(Absent) 8. Sensory Loss (pinprick arms/legs/face) - 0(Normal) 9. Best Language: Aphasia (description/naming/reading) - 0(No aphasia) 10. Dysarthria (speech clarity - read or repeat words) - 0(Normal) 11. Extinction and Inattention (visual/tactile/auditory/spatial/personal) - 0(No abnormality) Initials: snw Signatures: Dispatcher [employer] EDMS Quiana Cormier FNP-C MANUFACTURING QUALITY MANAGER-Csnw Ruchi Zuleta, RN RN ap3 David Hernandez MD MD jr11 Marva Glass, RN RN db
--- NOTE | 2022-06-04 13:07 | ER ---
Nurse's Notes [facility] Name: Tania Sethi Age: 61 yrs Sex: Female : 1960 Arrival Date: 06/04/2022 Time: 10:19 Bed 7 Private MD: Edy Garcia V Diagnosis: Fall on same level from slipping, tripping and stumbling with subsequent striking against object Presentation: 06/04 10:46 Chief complaint: Patient states: she fell Saturday06/02/2022 when she was out with her ap3 girlfriends "doing girly things". patient states she has pain to the back of her neck and her chest. patient states she feels like she has something stuck in her left palm, she scratched up her left knee and feels like she "needs her whole body checked out".Patient states she fell onto concrete. Coronavirus screen: At this time, the client does not indicate any symptoms associated with coronavirus-19. Ebola Screen: No symptoms or risks identified at this time. Initial Sepsis Screen: Does the patient meet any 2 criteria? No. Patient's initial sepsis screen is negative. Does the patient have a suspected source of infection? No. Patient's initial sepsis screen is negative. Risk Assessment: Do you want to hurt yourself or someone else? Patient reports no desire to harm self or others. Onset of symptoms was June 02, 2022. 10:46 Method Of Arrival: Ambulatory ap3 10:46 Acuity: [place] 4 ap3 10:50 Chief complaint:. ap3 Triage Assessment: 10:49 General: Appears uncomfortable, Behavior is calm. Pain: Complains of pain in back of ap3 neck and back, left arm, right arm, left palm, left leg. Neuro: Level of Consciousness is awake, alert, obeys commands, Oriented to person, place, time, situation, Gait is steady. Musculoskeletal: Range of motion: intact in all extremities. Injury Description: patient states she fell from standing a few days ago. Historical: - Allergies: 10:49 Glipizide; ap3 10:49 Sulfa (Sulfonamide Antibiotics); ap3 - PMHx: 10:49 diabetes mellitus; Hypercholesterolemia; Hypertensive disorder; Hypothyroidism; Lupus ap3 erythematosus; RA; - PSHx: 10:49 abdominal SX-twisted bowel; section; ap3 - Immunization history:: Client reports receiving the 2nd dose of the Covid vaccine. - Social history:: Smoking status: Patient denies any tobacco usage or history of. Screenin:51 Abuse screen: Denies threats or abuse. Nutritional screening: No deficits noted. ap3 Tuberculosis screening: No symptoms or risk factors identified. 11:07 Fall Risk Fall in past 12 months (25 points). No secondary diagnosis (0 pts). No IV (0 db pts). Ambulatory Aid- None/Bed Rest/Nurse Assist (0 pts). Gait- Normal/Bed Rest/Wheelchair (0 pts) Mental Status- Oriented to own ability (0 pts). Total Johnson Fall Scale indicates Low Risk Score (25-44 pts). Assessment: 10:54 Reassessment: Patient ambulatory to restroom with steady gate. Instructed on urine db specimen collection. 11:07 Reassessment: Patient appears in no apparent distress at this time. Patient is alert, db oriented x 3, equal unlabored respirations, skin warm/dry/pink. General: Appears in no apparent distress. comfortable, Behavior is calm, cooperative, quiet. Neuro: No deficits noted. Level of Consciousness is awake, alert, obeys commands, Oriented to person, place, time, Speech is normal, Facial symmetry appears normal, Pupils are PERRLA. Cardiovascular: No deficits noted. Respiratory: No deficits noted. GI: No deficits noted. : No deficits noted. EENT: No deficits noted. Derm: No deficits noted. Musculoskeletal: No deficits noted. 11:20 Reassessment: Pt taken to CT via stretcher. ph 12:00 Pain: Complains of pain in chest pain under right breast Pain currently is 9 out of 10 db on a pain scale. 12:35 Reassessment: Patient appears in no apparent distress at this time. No changes from db previously documented assessment. Patient and/or family updated on plan of care and expected duration. Pain level reassessed. Patient is alert, oriented x 3, equal unlabored respirations, skin warm/dry/pink. Patient states feeling better. Patient states symptoms have improved. 12:55 Reassessment: Patient appears in no apparent distress at this time. No changes from db previously documented assessment. Patient and/or family updated on plan of care and expected duration. Pain level reassessed. Patient is alert, oriented x 3, equal unlabored respirations, skin warm/dry/pink. Patient states feeling better. 13:30 Reassessment: Patient appears in no apparent distress at this time. No changes from db previously documented assessment. Patient and/or family updated on plan of care and expected duration. Pain level reassessed. Patient is alert, oriented x 3, equal unlabored respirations, skin warm/dry/pink. Patient states feeling better. Patient states symptoms have improved. Vital Signs: 10:46 BP 111 / 81; Pulse 79; Resp 18; Pulse Ox 100% ; Weight 70.31 kg; Height 5 ft. 2 in. ap3 (157.48 cm); Pain 10/10; 11:06 BP 129 / 102; Pulse 84; Resp 16; Pulse Ox 98% on R/A; db 12:30 BP 120 / 79; Pulse 71; Resp 16; Pulse Ox 95% ; Pain 6/10; db 13:30 BP 115 / 70; Pulse 70; Resp 18; Pulse Ox 100% ; Pain 4/10; db 10:46 Body Mass Index 28.35 (70.31 kg, 157.48 cm) ap3 NIH Stroke Scale Scores: 11:15 NIHSS Score: 0 snw ED Course: 10:19 Patient arrived in ED. as 10:21 Edy Garcia MD is Private Physician. as 10:32 David Hernandez MD is Attending Physician. jr11 10:49 Triage completed. ap3 10:51 Arm band placed on right wrist. ap3 10:53 Marva Glass, RN is Primary Nurse. db 10:59 Quiana Cormier FNP-C is PHCP. snw 11:02 Quiana Cormier FNP-C is PHCP. snw 11:07 Patient has correct armband on for positive identification. Placed in gown. Bed in low db position. Call light in reach. Side rails up X 1. 11:53 Inserted saline lock: 22 gauge in right antecubital area, using aseptic technique. db Blood collected. 13:06 Edy Garcia MD is Referral Physician. snw 13:49 No provider procedures requiring assistance completed. IV discontinued, intact, db bleeding controlled, No redness/swelling at site. Pressure dressing applied. Administered Medications: 12:05 Drug: Ketorolac 30 mg Route: IVP; Site: right antecubital; db 12:55 Follow up: Response: No adverse reaction db Medication: 11:07 VIS not applicable for this client. db Outcome: 13:06 Discharge ordered by . snw 13:49 Discharged to home ambulatory. db 13:49 Condition: stable 13:49 Discharge instructions given to patient, Instructed on discharge instructions, medication usage, Prescriptions given X 1. 13:50 Patient left the ED. db NIH Stroke Scale - NIH Stroke Score Date: 06/04/2022 Time: 11:15 Total Score = 0 1a. Level of Consciousness (LOC) - 0(Alert) 1b. Level of Consciousness (LOC) (Month \\T\\ Age) - 0(Both) 1c. LOC Commands (Open \\T\\ Closes Eyes/Hot Saw Helper) - 0(Both) 2. Best Gaze (Lateral Gaze Paresis) - 0(Normal) 3. Visual Field Loss - 0(No visual loss) 4. Facial Palsy - 0(Normal) 5a. Left Arm: Motor (10-second hold) - 0(No drift) 5b. Right Arm: Motor (10-second hold) - 0(No drift) 6a. Left Leg: Motor (5-second hold - always test supine) - 0(No drift) 6b. Right Leg: Motor (5-second hold - always test supine) - 0(No drift) 7. Limb Ataxia (finger/nose \\T\\ heel/lombardo - test with eyes open) - 0(Absent) 8. Sensory Loss (pinprick arms/legs/face) - 0(Normal) 9. Best Language: Aphasia (description/naming/reading) - 0(No aphasia) 10. Dysarthria (speech clarity - read or repeat words) - 0(Normal) 11. Extinction and Inattention (visual/tactile/auditory/spatial/personal) - 0(No abnormality) Initials: snw Signatures: Quiana Cormier, HEATING AND BLENDING SUPERVISOR-C HEATING AND BLENDING SUPERVISOR-Csnw Lauren Chow Patricia, RN RN Ruchi Zuleta RN RN ap3 David Hernandez MD MD jr11 Marva Glass RN RN db Corrections: (The following items were deleted from the chart) 10:51 10:46 Chief complaint: Patient states: she fell Saturday06/02/2022 when she was ap3 out with her girlfriends "doing girly things". patient states she has pain to the back of her neck and her chest. patient states she feels like she has something stuck in her left palm, she scratched up her left knee and feels like she "needs her whole body checked out". ap3
[2022-06-04 14:19] VITALS: BP 115/70; O2SAT 100
--- NOTE | 2022-06-05 06:26 | EKG ---
Test Date: 2022-06-04 Test Time: 12:22:53 Clothing Sales Assistant: SUPRIYA MEASUREMENT RESULTS: Intervals: Rate: 72 NC: 132 QRSD: 94 QT: 438 QTc: 479 [place]: P: 4 NC: 132 QRS: 28 T: 70 INTERPRETIVE STATEMENTS: Normal sinus rhythm Normal ECG Compared to ECG 06/05/2019 16:48:20 ST (T wave) deviation no longer present Prolonged QT interval no longer present Electronically Signed On 06-05-22 06:25:09 CDT by Bry Hylton
== END 2022-06-04 13:50 | disposition home or self-care (01) ==
LOC: ER 10:16
DX: S09.90XA Unspecified injury of head, initial encounter (principal); W01.0XXA Fall on same level from slipping, tripping and stumbling without subsequent striking against object, initial encounter; Y93.9 Activity, unspecified; Y92.9 Unspecified place or not applicable; R29.700 NIHSS score 0; Z88.2 Allergy status to sulfonamides; Z88.8 Allergy status to other drugs, medicaments and biological substances; E11.9 Type 2 diabetes mellitus without complications; I10 Essential (primary) hypertension; E03.9 Hypothyroidism, unspecified; L93.0 Discoid lupus erythematosus; E78.00 Pure hypercholesterolemia, unspecified
CPT/HCPCS: 36415; 70450; 71045; 72125; 80048; 80076; 82728; 83735; 84443; 85025; 93005; 96374; 99284